=== PATIENT | male | born 1990 | race Caucasian/White ===

== ENCOUNTER 2021-04-18 10:46 | Emergency (ER) | payer SELFPAY ==
[2021-04-18 10:57] VITALS: BP 106/90; PULSE 107; RESP 18; TEMP 36.9; O2SAT 97
--- NOTE | 2021-04-18 12:39 | ECG_ITS ---
Measurements Intervals [place] Rate: 108 P: 62 MS: 139 QRS: 55 QRSD: 95 T: 48 QT: 308 QTc: 413 Interpretive Statements SINUS TACHYCARDIA POSSIBLE LEFT ATRIAL ENLARGEMENT INCOMPLETE RIGHT BUNDLE BRANCH BLOCK DELAYED PRECORDIAL R/S TRANSITION ABNORMAL ECG Electronically Signed On 04-18-2021 13:46:14 CDT by Pro Marc D.O.
--- NOTE | 2021-04-18 12:49 | ED.PSYCH ---
HPI - Psych General Chief Complaint: Psychiatric Symptoms Stated Complaint: psych Time Seen by Provider: 04/18/21 12:49 Related Data Home Medications Medication Instructions Recorded Confirmed No Home Medications 04/18/21 04/18/21 Allergies Allergy/AdvReac Type Severity Reaction Status Date / Time No Known Allergies Allergy Verified 04/18/21 11:06 Discharge Plan Discharge Prescriptions: No Action No Home Medications RF: 0
--- NOTE | 2021-04-18 12:56 | PC.NURSE ---
[place] [employer] continue to be at bedside with pt.
[2021-04-18 13:11] LABS: Basophils Absolute Auto 0.11 K/mm3 (0.00-0.10); Basophils Percent Auto 1.6 % (0.0-1.0); Eosinophils Absolute Auto 0.02 K/mm3 (0.02-0.50); Eosinophils Percent Auto 0.3 % (1.0-6.0); Hematocrit 47.3 % (40.0-54.0); Hemoglobin 16.6 g/dL (14.0-18.0); Immature Granulocyte Absolute 0.02 K/mm3 (0.00-0.00); Immature Granulocyte Percent A 0.3 % (0.0-0.0); Lymphocytes Absolute Auto 1.83 K/mm3 (1.10-4.50); Lymphocytes Percent Auto 26.5 % (18.0-42.0); Mean Corpuscular HGB Conc 35.1 g/dL (32.0-36.0); Mean Corpuscular Hemoglobin 30.7 pg (27.0-31.0); Mean Corpuscular Volume 87.6 fL (78.0-102.0); Mean Platelet Volume 8.2 fl (8.7-11.0); Monocytes Absolute Auto 0.66 K/mm3 (0.10-0.90); Monocytes Percent Auto 9.6 % (2.0-11.0); Neutrophils Absolute Auto 4.3 K/mm3 (1.7-7.2); Neutrophils Percent Auto 61.7 % (50.0-70.0); Platelet Count Result 223 K/mm3 (150-420); Red Cell Distribution Width 13.1 % (11.6-14.4); White Blood Count 6.9 K/mm3 (4.8-10.8)
--- NOTE | 2021-04-18 13:14 | PC.NURSE ---
edp in to see pt.
[2021-04-18 13:21] LABS: Add Urine Microscopic? YES; Appearance Urine Clear (Clear); Bilirubin Urine Negative (Negative); Blood Urine Negative (Negative); Color Urine Light Yellow (Yellow); Glucose Urine UA Negative (Negative); Ketones Urine Negative (Negative); Leukocyte Esterase Ur Trace (Negative); Nitrate Urine Negative (Negative); Protein Urine Negative (Negative); Specific Grav Ur <= 1.005 (1.010-1.020); Urobilinogen Urine 0.2 mg/dL (0.2-1.0)
[2021-04-18 13:22] LABS: Amphetamine Screen Urine Negative (Negative); Barbiturate Screen Urine Negative (Negative); Benzodiazepines Screen Urine Negative (Negative); Cannabinoid Screen Urine Negative (Negative); Cocaine Screen Urine Negative (Negative); Methadone Screen Urine Negative (Negative); Opiate Screen Urine Negative (Negative); Phencyclidine Screen Urine Negative (Negative)
[2021-04-18 13:28] LABS: Bacteria Urine None seen /hpf; RBC Urine None seen /hpf (0-2); Squamous Epithelial Cell Urine Rare /hpf (Few); WBC Urine None seen /hpf (0-3)
[2021-04-18 13:38] LABS: Acetaminophen < 2 ug/mL (10-30); Alanine Aminotransferase 60 U/L (16-63); Albumin Level 3.6 g/dL (3.4-5.0); Alkaline Phosphatase 96 U/L (46-116); Anion Gap 16 mmol/L (8-16); Aspartate Amino Transferase 56 U/L (15-37); Bilirubin,Total 0.3 mg/dL (0.00-1.00); Blood Urea Nitrogen 10 mg/dL (7-18); Calcium 8.3 mg/dL (8.5-10.1); Carbon Dioxide 24 mmol/L (21-32); Chloride 103 mmol/L (98-108); Estimated CRCL calculation 98 ml/min; Estimated Glomerular Filt Rate > 60; Glucose 120 mg/dL (70-99); Osmolality Calculated 296 mOsm/kg (285-295); Potassium 3.8 mmol/L (3.5-5.1); Sodium 143 mmol/L (136-145); Total Protein 7.4 g/dL (6.4-8.2)
[2021-04-18 13:40] LABS: Ethanol 376 mg/dL (0-6)
[2021-04-18 13:41] LABS: Free T4 Free Thyroxine 0.74 ng/dL (0.76-1.46)
[2021-04-18 14:00] VITALS: BP 118/72; PULSE 106; RESP 18; O2SAT 97
--- NOTE | 2021-04-18 14:25 | PC.NURSE ---
Addendum entered by Aura Urban RN 04/18/21 14:49: report given to lacey baker on 2nd floor. pt to be held as er hold until etoh level below 80 so monse jesus can evaluate pt. officer Radha with [place] [employer] at bedside and states he is staying with pt. pt taken to 2nd floor room 206 via wheelchair. Original Note: Report given to lacey baker on 2nd floor. pt to be held as er hold until etoh level drops below 80 so monse jesus can
[2021-04-18 14:35] VITALS: BP 135/74; PULSE 110; RESP 18; TEMP 36.8; O2SAT 97
--- NOTE | 2021-04-18 14:35 | PC.NURSE ---
pt up to floor via wheelchair as an ER hold, [employer] officer at bedside, pt in handcuffs, officer will continue to stay at bedside while pt is in hospital. vital signs obtained, pt in stable condition
--- NOTE | 2021-04-18 15:53 | PC.NURSE ---
pt sleeping, officer at bedside, no evidence of distress noted
--- NOTE | 2021-04-18 16:50 | PC.NURSE ---
pt notified of blood redraw at 1999 to check ETOH level, pt agreed, officer continues to be at pt bedside
--- NOTE | 2021-04-18 17:37 | PC.NURSE ---
pt eating dinner, denies any other needs at this time, officer at bedside
--- NOTE | 2021-04-18 18:36 | PC.NURSE ---
pt ambulated to bathroom, officer at bedside, no evidence of distress noted
--- NOTE | 2021-04-18 19:00 | PC.NURSE ---
Report from off going nurse; patient lying in bed with handcuffs intact, no signs of circulatory impairment, no distress noted; police [employer] program coordinator at bedside. Patient expressed his desire to be DC into police custody so he can go to half-way. States his will bail him out and he just wants to go home and does not want to kill himself and has not wanted to do so all of today. Offgoing nurse, Gigi explained need to get a lower ETOH level since it is still elevated and blood scheduled to be drawn at 8pm. Patient voice frustration at delay but states he understands.
[2021-04-18 20:22] LABS: Ethanol 225 mg/dL (0-6)
--- NOTE | 2021-04-18 20:52 | PC.NURSE ---
notified that current ETOH level is 225. to order another level in a.m. search and rescue officer in room notified of current level.
--- NOTE | 2021-04-18 21:00 | PC.NURSE ---
Sitting up in chair; Police at bedside; Brianda, Charge Nurse informed officer of ETOH level still high.
--- NOTE | 2021-04-18 21:59 | PC.NURSE ---
Police power press supervisor here and stated that [employer] had no reason to hold patient. Patient may be discharged to his and mother. Nurse explained that patient had threatened suicide and once patient's alcohol level is 80 this facility is required to call [facility] for psych eval. Police stated understanding. x2 police officers, charge nurse, and patient's nurse entered patient's room and instructed patient that because of his alcohol level it is strongly recommended for patient to stay until alcohol level was WNL and patient has spoken to [employer] ruth. Patient stated he did not want to stay and that his threat was actually because he had a bad day yesterday. [employer] and nurses explained that it was important for patient seek counseling and speak with someone about his thoughts of suicide. Patient refused and stated he was fine now. asked to come up and situation and concerns were explained to her as well. stated that she understands and that she and his father would watch him carefully and help to seek assistance. Patient and , Lyn Wiggins, signed AMA paperwork and were escorted out by x2 [employer] officers.
--- NOTE | 2021-04-18 22:00 | PC.NURSE ---
:Lyn Wiggins here, Explained to her and patient that the ETOH level remains elevated. Fredis Lamar RN informed and patient level is 225 and target level is [address] unable to evaluate and clear patient until Level of 80 is reached. That at times persons with a high levels can dwell on problems and be at risk for harming self. Two officers from [place] [employer] and Fredis Lamar RN witness to 's and patient acknowledgement of risk. Patient states he will be with his father and he will not let him harm himself. That he has no intention of harming himself now. cosigned AMA and agrees to take custody of patient. Patient alert/oriented x 4; aware of situation, skin pink, respirations easy/unlabored and no distress noted. Police stated they were releasing him to her care. Patient and left hospital together with Police.
--- NOTE | 2021-04-18 22:19 | PC.NURSE ---
[facility]'s department notified of need to speak with [place] vegetable farm worker. Dispatcher to have [place] [address] return call.
--- NOTE | 2021-04-18 22:27 | PC.NURSE ---
notified of patient leaving AMA after dangers of suicide and blood alcohol levels.
--- NOTE | 2021-04-18 22:33 | PC.NURSE ---
204904/18/2021 Charge nurse spoke with Shana, Nurse Counter Professional, regarding patient threatening to go AMA and police are stating they have no reason to arrest him and due to the local jails being full they do not arrest people for high alcohol levels. Situation explained to Shana and Shana stated to talk to patient and police and let them know our policy. If police do not consider him a danger to himself and he is threating to leave that the nurses are to encourage him to stay and if patient becomes agitated the nurses are not to try to put themselves in danger trying to stop the patient. Charge nurse stated understanding.
--- NOTE | 2021-04-18 22:55 | PC.NURSE ---
Geovanna Milan from [facility] notified of patient leaving AM, with his s/o and escorted by 2 state police officers.
== END 2021-04-18 22:00 | disposition left against medical advice (07) ==
LOC: CHSED 10:59 → CHS2ND 14:41
PROVIDERS: Emergency Provider Emergency Medicine
DX: F99 Mental disorder, not otherwise specified (principal)
CPT/HCPCS: 36415; 80053; 80307; 81001; 84439; 84443; 85025; 93005; 99282; 99284